=== PATIENT | male | born 1945 | race African-American/Black ===

== ENCOUNTER 2018-12-18 14:58 | Emergency (ER) | payer SELFPAY ==
[~2018-12-18] VITALS: Ht 180.3 cm; Wt 77.1 kg
[2018-12-18 15:00] VITALS: BP 123/86
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
--- NOTE | 2018-12-18 15:14 | NUR ---
ED Nurse Note: x-ray at bedside.
--- NOTE | 2018-12-18 15:37 | NUR ---
ED Nurse Note: pt went down for CT in stable condition.
--- NOTE | 2018-12-18 16:00 | NUR ---
ED Nurse Note: Pt came back from CT scan in stable condition.
--- NOTE | 2018-12-18 16:25 | Diagnostic Imaging Report ---
Indication: Lumbar spine pain, trauma Technique: 3 views of the lumbar spine Comparison: None Findings: Bony alignment is normal. There is multilevel degenerative disc narrowing, worse in the lower lumbar spine. Vertebral body heights are preserved. No acute fractures. No dislocations. The pedicles are intact. Sacral arches are preserved. Impression: Degenerative changes. No acute bony trauma
--- NOTE | 2018-12-18 16:38 | Diagnostic Imaging Report ---
Indication: Neck pain, status post fall Technique: Spiral acquisitions obtained through the cervical spine. No IV contrast utilized. Multiplanar reconstructions were generated. Total dose length product 1616.72 mGycm. CTDIvol(s) 70.38,13.88 mGy. Dose reduction achieved using automated exposure control. Comparison: none Findings: There is slight posterior offset of C3 on C4 and of C4 on C5. The remainder of the bony alignment is normal. Vertebral body heights are preserved. No acute fractures. No dislocations. No prevertebral soft tissue swelling. At C2-3, there is mild degenerative disc narrowing. No significant disc bulge or protrusion or spinal stenosis. There is minimal bilateral neural foraminal narrowing. At C3-4, there is mild to moderate degenerative disc narrowing. There is severe bilateral neural foraminal stenosis. No significant disc bulge or protrusion or spinal stenosis At C4-5, there is minimal degenerative disc narrowing. No significant disc bulge or protrusion or spinal stenosis. There is severe right and moderate to severe left neural foraminal stenosis. At C5-6, there is minimal right and severe left neural foraminal narrowing. No significant disc bulge or protrusion or spinal stenosis. There is moderate degenerative disc narrowing. At C6-7, there is moderate right and minimal left neural foraminal stenosis. No significant disc bulge or protrusion or spinal stenosis. There is moderate degenerative disc narrowing At C7-T1, there is moderate to severe right and [id number] left neural foraminal stenosis. No significant disc bulge or protrusion or spinal stenosis. There is bilateral facet arthrosis at this level. The included extraspinal soft tissues are unremarkable. The upper aerodigestive tract is unremarkable. Impression: No acute bony trauma Degenerative changes, as detailed on a level basis above, mainly manifested by multilevel foraminal stenosis The CT scanner at [facility] is accredited by the [employer] and the scans are performed using protocols designed to limit radiation exposure to as low as reasonably achievable to attain images of sufficient resolution adequate for diagnostic evaluation.
--- NOTE | 2018-12-18 16:48 | Diagnostic Imaging Report ---
Indications: Pain, status post fall, headache, neck and lower back pain Technique: Spiral acquisitions obtained through the brain. Angled axial and coronal 5 x 5 mm slices were reconstructed. Total dose length product 1616.72 mGycm. CTDI vol(s) 70.38,13.88 mGy. Dose reduction achieved using automated exposure control Comparison: None. Findings: There is a left high parietal scalp soft tissue contusion demonstrated. There is a large area of encephalomalacia involving the left parietal and temporal lobe, and a smaller but contiguous area of encephalomalacia involving the posterior left frontal lobe and left frontal operculum. There is also a sizable area of encephalomalacia involving the right cerebellar hemisphere. There is age-related enlargement of the ventricles and extra axial CSF spaces, with some ex vacuo dilatation of the left lateral ventricle. No acute intracranial hemorrhage or edema, mass effect, nor midline shift. Visualized orbits are unremarkable. The included sinuses are unremarkable. The mastoids are clear. The calvarium is intact Impression: Chronic and age-related changes, including multiple old infarcts, as described Negative for acute intracranial bleed or mass effect Evidence of left parietal scalp soft tissue injury The CT scanner at [facility] is accredited by the [employer] and the scans are performed using protocols designed to limit radiation exposure to as low as reasonably achievable to attain images of sufficient resolution adequate for diagnostic evaluation.
[2018-12-18] MEDS ORDERED: ROBAXIN-750750 MG PO (17:01)
[2018-12-18] MEDS ORDERED: IBUPROFEN600 MG ORAL (17:01)
[2018-12-18] MEDS ORDERED: ACETAMINOPHEN325 M1 ORAL (17:01)
[2018-12-18 17:10] VITALS: BP 123/86
--- NOTE | 2018-12-18 17:10 | NUR ---
ER DISCHARGE NOTE: Patient is cleared to be discharged per ERMD, pt is aox4, on room air, with stable vital signs. pt was given dc and prescription instructions, pt was able to verbalize understanding, pt id band removed. pt is able to ambulate with steady gait. pt took all belongings.
== END 2018-12-18 17:10 | disposition home or self-care (01) ==
LOC: EDBD 14:58 → EMR 15:34
DX: M62.830 Muscle spasm of back (principal); S16.1XXA Strain of muscle, fascia and tendon at neck level, initial encounter; S00.93XA Contusion of unspecified part of head, initial encounter; M51.37 Other intervertebral disc degeneration, lumbosacral region; V79.9XXA Bus occupant (driver) (passenger) injured in unspecified traffic accident, initial encounter; Y92.410 Unspecified street and highway as the place of occurrence of the external cause
CPT/HCPCS: 70450; 72020; 72125; 99284